=== PATIENT | female | born 1965 ===

== ENCOUNTER 2018-01-31 09:48 | Emergency (ER) | payer OTHER ==
[~2018-01-31] VITALS: Ht 162.6 cm; Wt 80.3 kg
[~2018-01-31 09:48] MED LIST: ALLEGRA ALLERG180 MG PO; GILTUSS TR TAB1 EACH PO; HYDROCHLOROTH12.5 M1; VASOTEC2.5 MG
== END 2018-01-31 16:47 | disposition home or self-care (01) ==
LOC: ER 09:48
DX: I10 Essential (primary) hypertension (principal); R51 Headache